=== PATIENT | male | born 1970 | race Caucasian/White ===

== ENCOUNTER 2017-01-09 15:10 | Emergency (ER) | payer BC ==
[~2017-01-09] VITALS: Ht 175.3 cm; Wt 66.0 kg
[~2017-01-09 15:10] MED LIST: [UNRECOGNIZED DRUG - REMARK]
[2017-01-09 15:15] VITALS: BP 154/94; PULSE 98; RESP 20; TEMP 98.2; O2SAT 98
[2017-01-09] MEDS ORDERED: ONDANSETRON HCL 4 MG/2 ML VIAL IV PUSH ONE (15:30)
[2017-01-09] MEDS ORDERED: SODIUM CHLOR 0.9% 1000 ML INJ 1,000 ML IV ONE (15:30)
[2017-01-09] MEDS ORDERED: KETOROLAC TROMETHAMINE 30 MG/ML (IVP) VIAL IV PUSH ONE (15:30)
--- NOTE | 2017-01-09 15:33 | PD ---
HPI Chief Complaint: Flank/Kidney Pain Time Seen by Provider: 15:22 Travel History International Travel<30 days: No Contact w/Intl Traveler<30days: No Traveled to known affect area: No History of Present Illness HPI Patient is a 46-year-old male comes in complaining of right-sided pain that started this afternoon while he was mowing the lawn. He says the pain is in his right side and goes around to the back. He says he also feels that it goes into his penis. He says he feels a strange sensation when he urinates. He he says he had some nausea, but no vomiting. He denies fever or chills. He denies any penile discharge. He denies any testicular lumps or swelling. [facility] Past Medical History Anxiety: Yes Diminished Hearing: No Immunizations Current: Yes Tetanus Vaccination: < 5 Years Influenza Vaccination: No ?: Not Past Surgical History Other Surgery: Yes (RIGHT AXILLA LYMPH NODE REMOVAL/BIOPSY-BENIGN) Social History Alcohol Use: No Tobacco Use: Yes (1 PPD) Substance Use: No Allergies-Medications (Allergen,Severity, Reaction): Coded Allergies: No Known Allergies (Unverified , 01/09/17) Reported Meds & Prescriptions Reported Meds & Active Scripts Active Review of Systems Except as stated in HPI: all other systems reviewed are Neg General / Constitutional: No: Fever, Chills HENT: No: Headaches, Lightheadedness Cardiovascular: No: Chest Pain or Discomfort Respiratory: No: Shortness of Breath Gastrointestinal: Positive: Nausea, Abdominal Pain, No: Vomiting Genitourinary: Positive: Dysuria, Flank Pain Musculoskeletal: No: Myalgias Skin: No Rash, No Change in Pigmentation Neurologic: No: Weakness, Dizziness Physical Exam Narrative GENERAL: Awake and alert, in no acute distress. SKIN: Focused skin assessment warm/dry. HEAD: Atraumatic. Normocephalic. EYES: Pupils equal and round. No scleral icterus. ENT: No nasal bleeding or discharge. Mucous membranes pink and moist. NECK: Trachea midline. No JVD. CARDIOVASCULAR: Regular rate and rhythm. No murmur appreciated. RESPIRATORY: No accessory muscle use. Clear to auscultation. Breath sounds equal bilaterally. GASTROINTESTINAL: Abdomen soft, non-tender, nondistended. MUSCULOSKELETAL: No obvious deformities. No clubbing. No cyanosis. No edema. NEUROLOGICAL: Awake and alert. No obvious cranial nerve deficits. Motor grossly within normal limits. Normal speech. PSYCHIATRIC: Appropriate mood and affect; insight and judgment normal. Data Data Last Documented VS Vital Signs Date Time Temp Pulse Resp B/P Pulse Ox O2 Delivery O2 Flow Rate FiO2 01/09/17 15:15 98.2 98 20 154/94 98 Orders Complete Blood Count With Diff (01/09/17 15:27) Comprehensive Metabolic Panel (01/09/17 15:27) Urinalysis - C+S If Indicated (01/09/17 15:27) Iv Access Insert/Monitor (01/09/17 15:27) Ct Abd/Pel W/O Iv Contrast (01/09/17 ) Sodium Chlor 0.9% 1000 Ml Inj (Ns 1000 M (01/09/17 15:30) Ketorolac Inj (Toradol Inj) (01/09/17 15:30) Ondansetron Inj (Zofran Inj) (01/09/17 15:30) MDM Medical Decision Making Medical Screen Exam Complete: Yes Emergency Medical Condition: Yes Medical Record Reviewed: Yes Differential Diagnosis UTI versus pyelonephritis versus renal stone versus muscle strain versus dehydration Narrative Course Patient is a 46-year-old male comes in complaining of right-sided pain. On exam , pain is not reproducible. IV established, labs sent. Patient given IV fluids , Toradol, Zofran. CT of the abdomen and pelvis ordered to look for kidney stone. Patient signed out to Dr. Mclaughlin, to follow-up tests and disposition the patient appropriately. Diagnosis Primary Impression: Flank pain Condition: Stable Hailee Small MD Jan 09, 2017 15:33
[2017-01-09 15:59] LABS: AUTOMATED NEUTROPHIL # 11.1 TH/MM3 (1.8-7.7); BASOPHIL # 0.1 TH/MM3 (0-0.2); BASOPHIL % 0.7 % (0.0-2.0); EOSINOPHIL # 0.3 TH/MM3 (0-0.4); EOSINOPHIL % 1.9 % (0.0-4.0); HEMATOCRIT 51.4 % (39.0-51.0); LYMPH % 24.7 % (9.0-44.0); LYMPHOCYTE # 4.1 TH/MM3 (1.0-4.8); MEAN CELL VOLUME 91.7 FL (80.0-100.0); MEAN CORPUSCULAR HEMOGLOBIN 30.9 PG (27.0-34.0); MEAN CORPUSCULAR HGB CONC 33.7 % (32.0-36.0); NEUT % 67.7 % (16.0-70.0); PLATELET COUNT 280 TH/MM3 (150-450); WHITE BLOOD COUNT 16.4 TH/MM3 (4.0-11.0)
[2017-01-09 16:04] LABS: HEMO FLAGS DIFF FINAL
--- NOTE | 2017-01-09 16:07 | PD ---
Physical Exam Date Seen by Provider: Jan 09, 2017 Narrative Care was assumed from Dr. Small at 4 PM. The patient is being seen for the acute onset of right flank pain. The patient tells me that his pain has now completely spontaneously resolved. He states that it was a very severe pain in the right flank area. GENERAL: Awake and alert and in no acute distress. SKIN: Warm and dry. HEAD: Atraumatic. Normocephalic. EYES: Pupils equal and round. Extraocular movements are intact. NECK: Trachea midline. CARDIOVASCULAR: Regular rate and rhythm. RESPIRATORY: No accessory muscle use. GI/: His abdomen is soft and nontender throughout. There is no CVA tenderness. MUSCULOSKELETAL: No obvious deformities. No edema. NEUROLOGICAL: Awake and alert. No obvious cranial nerve deficits. Motor grossly within normal limits. Normal speech. PSYCHIATRIC: Appropriate mood and affect; insight and judgment normal. Data Data Last Documented VS Vital Signs Date Time Temp Pulse Resp B/P Pulse Ox O2 Delivery O2 Flow Rate FiO2 01/09/17 16:17 20 01/09/17 15:15 98.2 98 154/94 98 Orders Complete Blood Count With Diff (01/09/17 15:27) Comprehensive Metabolic Panel (01/09/17 15:27) Urinalysis - C+S If Indicated (01/09/17 15:27) Iv Access Insert/Monitor (01/09/17 15:27) Ct Abd/Pel W/O Iv Contrast (01/09/17 ) Sodium Chlor 0.9% 1000 Ml Inj (Ns 1000 M (01/09/17 15:30) Ketorolac Inj (Toradol Inj) (01/09/17 15:30) Ondansetron Inj (Zofran Inj) (01/09/17 15:30) Kidney Stone Assessment (01/09/17 17:26) Labs Laboratory Tests Test 01/09/17 01/09/17 15:20 17:20 White Blood Count 16.4 TH/MM3 Red Blood Count 5.60 MIL/MM3 Hemoglobin 17.3 GM/DL Hematocrit 51.4 % Mean Corpuscular Volume 91.7 FL Mean Corpuscular Hemoglobin 30.9 PG Mean Corpuscular Hemoglobin 33.7 % Concent Red Cell Distribution Width 13.0 % Platelet Count 280 TH/MM3 Mean Platelet Volume 8.4 FL Neutrophils (%) (Auto) 67.7 % Lymphocytes (%) (Auto) 24.7 % Monocytes (%) (Auto) 5.0 % Eosinophils (%) (Auto) 1.9 % Basophils (%) (Auto) 0.7 % Neutrophils # (Auto) 11.1 TH/MM3 Lymphocytes # (Auto) 4.1 TH/MM3 Monocytes # (Auto) 0.8 TH/MM3 Eosinophils # (Auto) 0.3 TH/MM3 Basophils # (Auto) 0.1 TH/MM3 CBC Comment DIFF FINAL Differential Comment Sodium Level 142 MEQ/L Potassium Level 3.5 MEQ/L Chloride Level 109 MEQ/L Carbon Dioxide Level 23.8 MEQ/L Anion Gap 9 MEQ/L Blood Urea Nitrogen 13 MG/DL Creatinine 1.10 MG/DL Estimat Glomerular Filtration 72 ML/MIN Rate Random Glucose 80 MG/DL Calcium Level 9.4 MG/DL Total Bilirubin 0.4 MG/DL Aspartate Amino Transf 17 U/L (AST/SGOT) Alanine Aminotransferase 25 U/L (ALT/SGPT) Alkaline Phosphatase 78 U/L Total Protein 7.7 GM/DL Albumin 4.3 GM/DL Urine Collection Type CLEAN CATCH Urine Color YELLOW Urine Turbidity SLIGHT Urine pH 5.5 Urine Specific [place] 1.024 Urine Protein NEG mg/dL Urine Glucose (UA) NEG mg/dL Urine Ketones NEG mg/dL Urine Occult Blood LARGE Urine Nitrite NEG Urine Bilirubin NEG Urine Leukocyte Esterase NEG Urine RBC 50-99 /hpf Urine Squamous Epithelial 0-5 /hpf Cells Urine Yeast (Budding) FEW Microscopic Urinalysis Comment CULT NOT INDICATED Urine Collection Time 17:20 MDM Medical Record Reviewed: Yes Supervised Visit with CHRISTIE: No Differential Diagnosis Differential diagnosis of flank pain includes but is not limited to kidney stone , pyelonephritis, musculoskeletal pain, PE Narrative Course This patient presents with acute right flank pain which is now spontaneously completely resolved. CBC Diagram 01/09/17 15:20 CT: 1. 4 mm calcified cacluis within the right posterolateral aspect of the urinary bladder which either represents a distal ureteral calculus or bladder calculus. No hydronephrosis is noted on the right. 2. Multiple calcified nonobstructing left renal calculi with the largest measuring 4 mm. 3. Bilateral adrenal nodules/masses measuring 2.6 x 1.7 cm on the right and 2.6 x 1.4 cm on the left. Differential includes adenomas, pheochromocytomas and metastatic disease. MRI of the abdomen with contrast could be performed as an outpatient for further assessment of these adrenal lesions if clinically indicated. 4. Mild hepatomegaly. 5. Degenerative changes and scoliosis of the lumbar spine. 6. Mildly prominent prostate gland. BMP Diagram 01/09/17 15:20 LFTs are normal. The patient passed his kidney stone when he obtained a urine sample for us. The stone has been sent for analysis. UA is negative for infection. The patient will be given a copy of his CT report so that he can follow up with his primary care provider regarding the other abnormalities seen on CT. Diagnosis Primary Impression: Flank pain Additional Impression: Kidney stone on right side Referrals: Davian Mcmullen MD Patient Instructions: General Instructions, Kidney Stones (DC) Additional Instruction: Take the Percocet and Phenergan together. Both pain and Percocet can cause nausea. Drink lots of fluids. Follow-up urology if you fail to spontaneously pass the stone within the next couple of days. Med/Other Pt SpecificInfo: Prescription(s) given Scripts Tamsulosin (Flomax)0.4 Mg Cap0.4 Mg PO HS #10 CAP Ref 0 Prov:Christin Mclaughlin MD 01/09/17 Promethazine (Phenergan)25 Mg [id number] Mg PO Q6H PRN (NAUSEA OR VOMITING) #12 TAB Ref 0 Prov:Christin Mclaughlin MD 01/09/17 Oxycodone-Acetaminophen (Percocet)5-325 mg Tab1 Tab PO Q4H PRN (PAIN) #12 TAB Ref 0 Prov:Christin Mclaughlin MD 01/09/17 Disposition: 01 DISCHARGE HOME Condition: Stable Christin Mclaughlin MD Jan 09, 2017 16:07
[2017-01-09 16:16] LABS: CHLORIDE 109 MEQ/L (98-107); POTASSIUM 3.5 MEQ/L (3.5-5.1); SODIUM (NA) 142 MEQ/L (136-145)
[2017-01-09 16:20] LABS: ANION GAP 9 MEQ/L (5-15); BICARBONATE 23.8 MEQ/L (21.0-32.0); BLOOD UREA NITROGEN 13 MG/DL (7-18)
[2017-01-09 16:23] LABS: ALT (GPT) 25 U/L (12-78); AST (GOT) 17 U/L (15-37); GLOMERULAR FILTRATION RATE 72 ML/MIN (>89)
[2017-01-09 16:24] LABS: TOTAL BILIRUBIN ADULT 0.4 MG/DL (0.2-1.0)
--- NOTE | 2017-01-09 16:24 | RADRPT ---
EXAM DATE/TIME: 01/09/2017 15:37 [place] COMPARISON: No previous studies available for comparison. INDICATIONS : Right flank pain. ORAL CONTRAST: No oral contrast ingested. RADIATION DOSE: 7.85 CTDIvol (mGy) MEDICAL HISTORY : Non-responsive. SURGICAL HISTORY : None. ENCOUNTER: Initial ACUITY: 1 day PAIN SCALE: 5/10 LOCATION: Right flank TECHNIQUE: Volumetric scanning of the abdomen and pelvis was performed. Using automated exposure control and ad justment of the mA and/or kV according to patient size, radiation dose was kept as low as reasonably achievable to obtain optimal diagnostic quality images. DICOM format image data is available electro nically for review and comparison. FINDINGS: There is a 4 mm calcified calculus within the right posterolateral urinary bladder in the expected lo cation of the ureterovesical junction which may represent distal ureteral calculus or bladder calculu s. There is no significant hydronephrosis on the right to suggest persistent obstruction. There are multiple calcified nonobstructing left renal calculi with the largest measuring 4 mm. The liver is enlarged. Evaluation of the solid organs of the abdomen is limited by the lack of intravenous contras t. Bilateral adrenal masses are noted and measure 2.6 x 1.7 cm on the right and 2.6 x 1.4 cm on the left. Differential includes bilateral adrenal adenomas, pheochromocytomas and metastatic disease. M RI of the abdomen with contrast may be helpful for further evaluation of these adrenal masses if clin ically indicated. This study can be performed as an outpatient. Degenerative changes and scoliosis of the lumbar spine are noted. The prostate gland is minimally prominent. CONCLUSION: 1. 4 mm calcified calculus within the right posterolateral aspect of the urinary bladder which either represents a distal ureteral calculus or bladder calculus. No hydronephrosis is noted on the right. 2. Multiple calcified nonobstructing left renal calculi with the largest measuring 4 mm. 3. Bilateral adrenal nodules/masses measuring 2.6 x 1.7 cm on the right and 2.6 x 1.4 cm on the left. Differential includes adenomas, pheochromocytomas and metastatic disease. MRI of the abdomen with contrast could be performed as an outpatient for further assessment of these adrenal lesions if clini sudeep indicated. 4. Mild hepatomegaly. 5. Degenerative changes and scoliosis of the lumbar spine. 6. Mildly prominent prostate gland. Medhat Dueñas MD on January 09, 2017 at 16:04 Board Certified Radiologist. This report was verified electronically.
[2017-01-09 16:26] LABS: ALKALINE PHOSPHATASE 78 U/L (45-117)
[2017-01-09] MEDS ORDERED: TAMS5CAP PO (17:03)
[2017-01-09] MEDS ORDERED: PERC5TAB12 PO (17:03)
[2017-01-09] MEDS ORDERED: PROM25TA10 PO (17:03)
[2017-01-09 17:26] LABS: BLOOD, URINE LARGE (NEG); GLUCOSE,URINE NEG (NEG); KETONE, URINE NEG (NEG); NITRITE,URINE NEG (NEG); PH, URINE 5.5 (5.0-8.5)
[2017-01-09 17:35] LABS: METHOD OF COLLECTION CLEAN CATCH
[2017-01-09 17:36] LABS: URINE COLOR YELLOW (YELLW/STRAW)
[2017-01-09 17:37] LABS: SQUAMOUS EPITHELIAL CELL URINE 0-5 /hpf (0-5)
[2017-01-09 17:38] LABS: COMMENT (UR) CULT NOT INDICATED; CULTURE IF INDICATED CULT NOT INDICATED
[2017-01-09 18:10] VITALS: BP 136/69
== END 2017-01-09 18:16 | disposition home or self-care (01) ==
LOC: PHED 15:10
DX: R10.9 Unspecified abdominal pain (principal); N20.0 Calculus of kidney; E27.9 Disorder of adrenal gland, unspecified; R16.0 Hepatomegaly, not elsewhere classified; R11.0 Nausea; F17.200 Nicotine dependence, unspecified, uncomplicated; Z86.59 Personal history of other mental and behavioral disorders
CPT/HCPCS: 74176; 80053; 81001; 82370; 85025; 88300; 96374; 96375; 99285; J1885; J2405; J7030